=== PATIENT | male | born 1935 | race Caucasian/White ===

== ENCOUNTER 2022-12-31 20:15 | Inpatient (IN) ==
[2022-12-31 21:07] LABS: ABS Basophils 0.1 10^3/uL (0.0-0.1); ABS Lymphocytes 0.6 10^3/uL (1.0-4.8); ABS Monocytes 0.8 10^3/uL (0.0-1.1); ABS Neutrophils 8.5 10^3/uL (1.5-7.6); Eosinophil % 0.2 %; Hematocrit 41.4 % (38-53); Hemoglobin 14.1 g/dL (13.2-16.3); Lymphocyte % 6.1 %; Mean Corpuscular Hemoglobin 31.6 pg (27-33); Mean Corpuscular Hgb Conc 34.1 g/dL (31-36); Mean Corpuscular Volume 92.6 fL (80-97); Mean Platelet Volume 8.8 fL (7.5-11.2); Platelet Count 188 10^3/uL (150-450); Red Blood Count 4.47 10^6/uL (4.06-5.63); Red Cell Distribution Width 12.8 % (12-17); White Blood Count 9.9 10^3/uL (3.6-10.2)
[2022-12-31 21:30] LABS: Albumin 3.7 g/dL (3.2-5.2); Albumin/Globulin Ratio 1.2 (1-3); C Reactive Protein 92.82 mg/L (<8.01); Calcium 9.3 mg/dL (8.6-10.3); Creatinine, Serum 1.08 mg/dL (0.67-1.17); Globulin 3.1 g/dL (2-4); Total Bilirubin 0.7 mg/dL (0.2-1.0); Total Protein 6.8 g/dL (6.4-8.9); eGFR CKD-EPI 67.2 (>60)
[2023-01-01] MEDS: cefTRIAXone 1 gm/50 mL D5W 1 GM/50 ML BAG IV SCH ×2 (00:11→23:11)
[2023-01-01 00:48] LABS: HDL Cholesterol 51.4 mg/dL
[2023-01-01] MEDS ORDERED: Enoxaparin 40 MG/0.4 ML SYR SUBCUT SCH (01:00)
[2023-01-01 01:36] LABS: Magnesium 1.9 mg/dL (1.9-2.7); Phosphorus 2.4 mg/dL (2.5-5.0)
[2023-01-01] MEDS: Enoxaparin 40 MG/0.4 ML SYR SUBCUT SCH ×2 (03:10→21:24)
[2023-01-01] MEDS ORDERED: NS 0.9% 1000 ml BAG 1,000 ML IV SCH ×2 (07:45→16:15)
[2023-01-01] MEDS: Cholecalciferol (VIT D3) 400 units TAB PO SCH (08:14)
[2023-01-01] MEDS: CMCS: Alfuzosin ER 10 mg TAB.ER (NF) 10 MG TAB.ER PO SCH (21:22)
[2023-01-02 06:23] LABS: ABS Basophils 0.1 10^3/uL (0.0-0.1); ABS Eosinophils 0.2 10^3/uL (0.0-0.5); ABS Lymphocytes 1.2 10^3/uL (1.0-4.8); ABS Neutrophils 5.6 10^3/uL (1.5-7.6); Eosinophil % 2.1 %; Hematocrit 35.8 % (38-53); Hemoglobin 12.3 g/dL (13.2-16.3); Lymphocyte % 14.9 %; Mean Corpuscular Hemoglobin 31.7 pg (27-33); Mean Corpuscular Hgb Conc 34.4 g/dL (31-36); Mean Corpuscular Volume 92.1 fL (80-97); Mean Platelet Volume 8.7 fL (7.5-11.2); Nucleated Red Blood Cells % 0.1 %/100WBC (0.0-0.8); Platelet Count 151 10^3/uL (150-450); Red Blood Count 3.88 10^6/uL (4.06-5.63); Red Cell Distribution Width 12.7 % (12-17); White Blood Count 8.1 10^3/uL (3.6-10.2)
[2023-01-02 06:55] LABS: Calcium 8.3 mg/dL (8.6-10.3); Creatinine, Serum 0.88 mg/dL (0.67-1.17); Magnesium 1.8 mg/dL (1.9-2.7); Potassium 4.1 mmol/L (3.5-5.0); eGFR CKD-EPI 84.3 (>60)
[2023-01-02] MEDS: Cholecalciferol (VIT D3) 400 units TAB PO SCH (09:13)
[2023-01-02] MEDS: CMCS: Alfuzosin ER 10 mg TAB.ER (NF) 10 MG TAB.ER PO SCH (21:03)
[2023-01-02] MEDS: Enoxaparin 40 MG/0.4 ML SYR SUBCUT SCH (21:04)
[2023-01-02] MEDS: cefTRIAXone 1 gm/50 mL D5W 1 GM/50 ML BAG IV SCH (23:27)
[2023-01-03 06:02] LABS: ABS Eosinophils 0.2 10^3/uL (0.0-0.5); ABS Lymphocytes 1.3 10^3/uL (1.0-4.8); ABS Neutrophils 4.6 10^3/uL (1.5-7.6); Eosinophil % 2.9 %; Hematocrit 35.7 % (38-53); Hemoglobin 12.2 g/dL (13.2-16.3); Lymphocyte % 18.6 %; Mean Corpuscular Hemoglobin 31.4 pg (27-33); Mean Corpuscular Hgb Conc 34.2 g/dL (31-36); Mean Platelet Volume 8.9 fL (7.5-11.2); Platelet Count 162 10^3/uL (150-450); Red Blood Count 3.88 10^6/uL (4.06-5.63); Red Cell Distribution Width 12.7 % (12-17); White Blood Count 7.2 10^3/uL (3.6-10.2)
[2023-01-03 06:23] LABS: Calcium 8.4 mg/dL (8.6-10.3); Creatinine, Serum 0.84 mg/dL (0.67-1.17); Magnesium 1.8 mg/dL (1.9-2.7); eGFR CKD-EPI 85.5 (>60)
[2023-01-03] MEDS: Cholecalciferol (VIT D3) 400 units TAB PO SCH (09:47)
[2023-01-03] MEDS: CMCS: Alfuzosin ER 10 mg TAB.ER (NF) 10 MG TAB.ER PO SCH (21:01)
[2023-01-03] MEDS: Enoxaparin 40 MG/0.4 ML SYR SUBCUT SCH (21:02)
[2023-01-04 07:04] LABS: Urine Appearance Clear; Urine Bilirubin Negative (Negative); Urine Blood 1+ (Negative); Urine Color Yellow; Urine Glucose Negative (Negative); Urine Ketones Negative (Negative); Urine Nitrite Negative (Negative); Urine Protein Negative (Negative); Urine Specific Gravity 1.017 (1.002-1.030); Urine Urobilinogen Negative (Negative)
[2023-01-04 08:40] LABS: Urine Bacteria Absent (Absent); Urine Red Blood Cell 2+(6-10/hpf) (Absent); Urine White Blood Cell 3+(>20/hpf) (Absent)
[2023-01-04] MEDS: Cholecalciferol (VIT D3) 400 units TAB PO SCH (09:18)
[2023-01-04] MEDS: CMCS: Alfuzosin ER 10 mg TAB.ER (NF) 10 MG TAB.ER PO SCH (19:30)
[2023-01-04] MEDS: Enoxaparin 40 MG/0.4 ML SYR SUBCUT SCH (21:39)
[2023-01-05 06:44] LABS: Hematocrit 36.4 % (38-53); Hemoglobin 12.6 g/dL (13.2-16.3); Mean Corpuscular Hemoglobin 31.4 pg (27-33); Mean Corpuscular Hgb Conc 34.6 g/dL (31-36); Mean Corpuscular Volume 90.9 fL (80-97); Mean Platelet Volume 8.8 fL (7.5-11.2); Platelet Count 205 10^3/uL (150-450); Red Blood Count 4.01 10^6/uL (4.06-5.63); Red Cell Distribution Width 12.5 % (12-17); White Blood Count 8.2 10^3/uL (3.6-10.2)
[2023-01-05 09:04] LABS: Calcium 8.7 mg/dL (8.6-10.3); Creatinine, Serum 0.84 mg/dL (0.67-1.17); Potassium 4.2 mmol/L (3.5-5.0); eGFR CKD-EPI 85.5 (>60)
[2023-01-05] MEDS: Cholecalciferol (VIT D3) 400 units TAB PO SCH (09:07)
[2023-01-05] MEDS: Enoxaparin 40 MG/0.4 ML SYR SUBCUT SCH (21:21)
[2023-01-05] MEDS: CMCS: Alfuzosin ER 10 mg TAB.ER (NF) 10 MG TAB.ER PO SCH (21:21)
[2023-01-06] MEDS: Cholecalciferol (VIT D3) 400 units TAB PO SCH (09:13)
[2023-01-06] MEDS: Magnesium Hydroxide LIQ 30 ML UDC PO SCH ×2 (11:22→21:55)
[2023-01-06] MEDS: CMCS: Alfuzosin ER 10 mg TAB.ER (NF) 10 MG TAB.ER PO SCH (21:55)
[2023-01-06] MEDS: Enoxaparin 40 MG/0.4 ML SYR SUBCUT SCH (21:55)
[2023-01-07] MEDS: Magnesium Hydroxide LIQ 30 ML UDC PO SCH ×2 (09:10→21:20)
[2023-01-07] MEDS: Cholecalciferol (VIT D3) 400 units TAB PO SCH (09:10)
[2023-01-07] MEDS: Enoxaparin 40 MG/0.4 ML SYR SUBCUT SCH (21:20)
[2023-01-07] MEDS: CMCS: Alfuzosin ER 10 mg TAB.ER (NF) 10 MG TAB.ER PO SCH (21:20)
[2023-01-08] MEDS: Magnesium Hydroxide LIQ 30 ML UDC PO SCH (08:16)
[2023-01-08] MEDS: Cholecalciferol (VIT D3) 400 units TAB PO SCH (08:16)
[2023-01-08 09:52] LABS: Rapid COVID-19 Molecular Undetected (Undetected)
[2023-01-08 13:29] VITALS: BP 119/61
== END 2023-01-08 13:25 | DRG 690 ==
LOC: ED 20:15 → EDHOLD 20:15 → SUATTDRO 22:46 → MEDTELE 01-01 00:40 → SUATTDRO 01-02 13:20
PROVIDERS: ADMIT Internal Medicine; ATTEND Internal Medicine

== ENCOUNTER 2023-09-26 14:06 | Observation (INO) ==
[2023-09-26 15:54] LABS: ABS Eosinophils 0.1 10^3/uL (0.0-0.5); ABS Lymphocytes 1.4 10^3/uL (1.0-4.8); ABS Monocytes 0.7 10^3/uL (0.0-1.1); ABS Neutrophils 5.2 10^3/uL (1.5-7.6); Eosinophil % 0.7 %; Hematocrit 44.8 % (38-53); Hemoglobin 15.6 g/dL (13.2-16.3); Lymphocyte % 19.3 %; Mean Corpuscular Hemoglobin 32.7 pg (27-33); Mean Corpuscular Hgb Conc 34.8 g/dL (31-36); Mean Corpuscular Volume 93.9 fL (80-97); Mean Platelet Volume 9.2 fL (7.5-11.2); Platelet Count 185 10^3/uL (150-450); Red Blood Count 4.77 10^6/uL (4.06-5.63); Red Cell Distribution Width 12.7 % (12-17); White Blood Count 7.4 10^3/uL (3.6-10.2)
[2023-09-26 15:59] LABS: Urine Appearance Clear; Urine Bilirubin Negative (Negative); Urine Blood Negative (Negative); Urine Color Light-Yellow; Urine Glucose Negative (Negative); Urine Ketones Negative (Negative); Urine Nitrite Negative (Negative); Urine Protein Negative (Negative); Urine Specific Gravity 1.008 (1.002-1.030); Urine Urobilinogen Negative (Negative); Urine pH 5.5 (5.0-8.0)
[2023-09-26 16:08] LABS: ALT 16 U/L (7-52); AST 17 U/L (13-39); Albumin 4.2 g/dL (3.2-5.2); Albumin/Globulin Ratio 1.6 (1-3); Alkaline Phosphatase 52 U/L (35-149); Anion Gap 9 mmol/L (2-16); Blood Urea Nitrogen 12 mg/dL (6-24); C Reactive Protein < 1.00 mg/L (<8.01); CO2 Carbon Dioxide 23 mmol/L (22-32); Calcium 9.5 mg/dL (8.6-10.3); Chloride 102 mmol/L (101-111); Creatinine, Serum 1.01 mg/dL (0.67-1.17); Globulin 2.6 g/dL (2-4); Glucose 107 mg/dL (70-100); Potassium 4.3 mmol/L (3.5-5.0); Sodium 134 mmol/L (135-145); Total Bilirubin 0.4 mg/dL (0.2-1.0); Total Protein 6.8 g/dL (6.4-8.9); eGFR CKD-EPI 72.4 (>60)
[2023-09-26 16:19] LABS: Urine Bacteria Absent /HPF (Absent); Urine Red Blood Cell Trace(0-2/hpf) /HPF (0-Trace); Urine White Blood Cell 1+(6-10/hpf) /HPF (0-Trace)
[2023-09-26] MEDS ORDERED: Ondansetron 4 mg VIAL 2 MG/ML 2 ml VIAL IV PRN (18:57)
[2023-09-26] MEDS: Lactated Ringers 1000 ml BAG 1,000 ML IV SCH (19:57)
[2023-09-26] MEDS: cefTRIAXone 1 gm/50 mL D5W 1 GM/50 ML BAG IV SCH (19:57)
[2023-09-26] MEDS: Enoxaparin 40 MG/0.4 ML SYR SUBCUT SCH (19:57)
[2023-09-26 22:38] LABS: Creatine Kinase 99 U/L (10-223)
[2023-09-27 06:09] LABS: ABS Basophils 0.1 10^3/uL (0.0-0.1); ABS Eosinophils 0.1 10^3/uL (0.0-0.5); ABS Lymphocytes 1.7 10^3/uL (1.0-4.8); ABS Monocytes 0.8 10^3/uL (0.0-1.1); ABS Neutrophils 4.6 10^3/uL (1.5-7.6); Eosinophil % 1.4 %; Hematocrit 42.2 % (38-53); Hemoglobin 14.5 g/dL (13.2-16.3); Lymphocyte % 23.3 %; Mean Corpuscular Hemoglobin 32.5 pg (27-33); Mean Corpuscular Hgb Conc 34.5 g/dL (31-36); Mean Corpuscular Volume 94.3 fL (80-97); Mean Platelet Volume 8.6 fL (7.5-11.2); Platelet Count 165 10^3/uL (150-450); Red Blood Count 4.47 10^6/uL (4.06-5.63); Red Cell Distribution Width 12.8 % (12-17); White Blood Count 7.3 10^3/uL (3.6-10.2)
[2023-09-27 07:08] LABS: Anion Gap 8 mmol/L (2-16); Blood Urea Nitrogen 10 mg/dL (6-24); CO2 Carbon Dioxide 23 mmol/L (22-32); Calcium 8.9 mg/dL (8.6-10.3); Chloride 105 mmol/L (101-111); Creatinine, Serum 0.92 mg/dL (0.67-1.17); Glucose 81 mg/dL (70-100); Sodium 136 mmol/L (135-145)
[2023-09-27 07:09] LABS: TSH Ultra Thyroid Stim Horm 1.33 mcIU/mL (0.34-5.60)
[2023-09-27 07:31] LABS: Vitamin B12 533 pg/mL (180-914)
[2023-09-27 12:44] LABS: Potassium, Whole Blood 4.5 mmol/L (3.4-4.5)
[2023-09-27 13:00] LABS: Phosphorus 3.3 mg/dL (2.5-5.0)
[2023-09-27] MEDS: CMCS: Alfuzosin ER 10 mg TAB.ER (NF) 10 MG TAB.ER PO SCH (21:28)
[2023-09-28 06:58] LABS: Folate 16.77 ng/mL (5.90-24.80)
[2023-09-28 06:59] LABS: Calcium 8.7 mg/dL (8.6-10.3); Creatinine, Serum 0.98 mg/dL (0.67-1.17); Magnesium 1.8 mg/dL (1.9-2.7); Phosphorus 3.7 mg/dL (2.5-5.0); Potassium 4.3 mmol/L (3.5-5.0); eGFR CKD-EPI 75.1 (>60)
[2023-09-28] MEDS: Magnesium Sulfate 2 gm BAG 2 GM/50 ML BAG IVPB ONE (10:06)
[2023-09-28] MEDS: Magnesium Sulfate IV 1GM/100ML 1 GM/100 ML BAG IV ONE (12:00)
[2023-09-29 05:40] LABS: Calcium 8.6 mg/dL (8.6-10.3); Creatinine, Serum 0.93 mg/dL (0.67-1.17); Magnesium 2.1 mg/dL (1.9-2.7); Potassium 4.5 mmol/L (3.5-5.0)
[2023-09-30 14:17] LABS: Rapid COVID-19 Molecular Undetected (Undetected)
[2023-10-01 09:50] VITALS: BP 137/73
== END 2023-10-01 13:45 ==
LOC: EDHOLD 14:06 → ED 14:06 → SUATTDRO 18:45 → MED 09-27 15:12
PROVIDERS: ADMIT Internal Medicine; ATTEND Internal Medicine